=== PATIENT | female | born 1965 ===

== ENCOUNTER 2020-11-02 18:50 | Emergency (ER) | payer OTHER ==
[~2020-11-02] VITALS: Ht 160 cm; Wt 74.8 kg
[~2020-11-02 18:50] MED LIST: CIPRO500 MG PO; GILTUSS TR TAB1 EACH PO; OSEL75CA PO; TESSALON PERLE100 MG PO; TRAMADOL HCL50 MG PO; ZYRTEC10 MG PO
[2020-11-02] MEDS ORDERED: LEVOXYL25 MCG PO (19:07)
== END 2020-11-02 21:36 | disposition home or self-care (01) ==
LOC: ER 18:50
DX: J40 Bronchitis, not specified as acute or chronic (principal); R50.9 Fever, unspecified; Z11.52 Encounter for screening for COVID-19